=== PATIENT | female | born 1945 | race Caucasian/White ===

== ENCOUNTER 2019-09-11 13:41 | Outpatient (CLI) | payer OTHER, SELFPAY ==
[2019-09-11] VITALS (9 sets, daily range): BP systolic 107–155; BP diastolic 54–90; PULSE 84–97; RESP 16–20; TEMP 36.2; O2SAT 97–100
--- NOTE | 2019-09-11 13:45 | DI.RAD.S_ITS ---
PROCEDURE: PAIN L INTERLAMINAR/CAUDAL INJ INDICATIONS: SPINAL STENOSIS FINDINGS: Fluoroscopic spot filming was performed to verify placement of spinal needles at the L4-L5 level(s), as labeled on the films. Appropriate location(s) of the needle tip(s) was confirmed by injection of iodinated contrast. Dictated by: Rico Levi M.D. on 09/11/2019 at 15:42 Approved by: Rico Levi M.D. on 09/11/2019 at 15:42
[2019-09-11] MEDS: MIDAZOLAM 5 MG/5 ML VIAL IV (15:00)
[2019-09-11] MEDS: BUPIVACAINE 0.25% (PF) VIAL 2 ML INJ (15:04)
[2019-09-11] MEDS: IOPAMIDOL 15 ML VIAL 3 ML INJ (15:06)
[2019-09-11] MEDS: BETAMETHASONE 30 MG/5 ML MDV 6 MG INJ (15:06)
[2019-09-11] MEDS: fentaNYL 100 MCG/2 ML INJ 50 MCG IV (15:07)
--- NOTE | 2019-09-11 15:20 | PC.NURSE ---
Post procedure note: time out at 1458. Patient medicated per providers orders. Tolerated procedure well. VSS throughout. Procedure end at 1509. Patient able to sit up at transfer to wheelchair with standby assist. Handoff report given to Arron Zaldivar RN at 1517. Patient transferred to recliner independently. Pain level 0/10. No complaints of unusual numbness or tingling to lower extremities.
--- NOTE | 2019-09-11 15:54 | P.PCN_ITS ---
Procedures Date/Time Date of procedure: 09/11/19 Time of procedure: 15:54 General Procedure description: PROVIDER: South Arias DO Operative Note PREOP DIAGNOSIS 1. HNP WITH RADICULAR FEATURES, 2. MULTILEVEL CENTRAL STENOSIS, POST OP DIAGNOSIS 1. HNP WITH RADICULAR FEATURES, 2. MULTILEVEL CENTRAL STENOSIS PROCEDURES 1. FLUORSCOPICALLY GUIDED CONTRAST CONTROLLED INTERLAMINAR EPIDURAL STEROID INJECTION -L4/5 PHYSICIAN: South Arias DO INDICATIONS: Cris is referred by Dr. Obando for treatment of Bilateral Foraminal Stenosis R>L LE symptoms. FINDINGS Multilevel Central Spinal Stenosis with Nerve Root Compression DESCRIPTION OF PROCEDURE Fluoroscopically guided, contrast-controlled L4/5 translaminar epidural steroid injection. Following review of allergy and review of potential side effects and complications, including, but not necessarily limited to, infection, allergic reaction, local tissue breakdown, temporary as well as permanent nerve injury, paralysis, stroke and possible , the patient indicated that the patient understood and agreed to proceed. An informed consent document was signed by the patient, witnessed by a nurse, and placed in the patient's chart. Additionally, other treatment options including modalities, medications, and physical therapy were reviewed with the patient. After review of previous anaesthesic history and IV conscious sedation the patient was deemed safe to proceed with todays procedure with IV conscious sedation as ASA class II designation. Safety time-out was performed to confirm patient ID, procedure to be performed and site of procedure. IV sedation was accomplished with a combination of 2mg of Versed and 50mcg of Fentanyl was administered by the RN after DO order, titrated to patient comfort during the course of the procedure while the patient remained responsive to all verbal commands In the prone position, following sterile prep and drape of the lumbar region, the L4/5 translaminar space was identified fluoroscopically. The skin was anest hetized via a 25-gauge, 1.5-inch needle with 1% lidocaine solution. At this point, a 22-gauge short bevel spinal needle was atraumatically introduced and advanced under fluoroscopic guidance into the region of the L4/5 translaminar space. Depth was confirmed on lateral view. Radiological data, including multiple fluoroscopic views of the lumbar spine, reveal a spinal needle at the L4/5 translaminar space. Lateral views then show placement of the needle in the epidural space. Subsequent views show contrast material flowing superiorly and inferiorly in the epidural space. No vascular or intrathecal uptake is observed. At this point, using loss of resistance technique with saline and air, the epidural space was entered. This was confirmed following negative aspiration with injection of approximately 1.5cc of Isovue 200, showing excellent epidural flow without vascular or intrathecal uptake. At this point, 1cc of 1% lidocaine solution combined with 3cc or 20mg of dexamethasone and 6mg betamethasone was injected without incident. The patient tolerated the procedure well without signs or symptoms of complications prior to transfer to the recovery area continued monitoring without incident. The patient was then transferred to the recovery area where they were observed for an appropriate period of time after the injection. The patient reported a VAS score of 6 prior to the procedure and a post- procedure VAS of 0. Total Fluoroscopy Time: 11.8 seconds, 8.99 mGy Total Conscious Sedation Time: 24min POST OP INSTRUCTIONS The patient was provided a Pain Log to continue to record their response to the target-specific procedure prior to follow-up visit with their referring physician. Additionally, specific post-injection care instructions and a contact number to our office were provided if concerns arise regarding possible complications associated with the procedure are suspected. South Arias DO Complications: none
== END 2019-09-11 15:41 ==
LOC: RAD 13:45
PROVIDERS: PCP Family Medicine; Visit Provider Physical Medicine & Rehabilitation
DX: M51.16 Intervertebral disc disorders with radiculopathy, lumbar region (principal); M48.062 Spinal stenosis, lumbar region with neurogenic claudication
CPT/HCPCS: 62323; 99152; J0702; J1100; J2250; J3010

== ENCOUNTER 2020-08-31 07:37 | Day surgery (SDC) | payer OTHER, SELFPAY ==
[2020-08-25 13:35] VITALS: BMI 19.8
[2020-08-31] VITALS (7 sets, daily range): BP systolic 103–179; BP diastolic 44–100; PULSE 76–124; RESP 14–20; TEMP 36–36.7; O2SAT 92–100
--- NOTE | 2020-08-31 | PATH_ITS ---
[facility] Accession Number: [id number] . 01 Material submitted: . PART A: lymph node - RIGHT AXILLA SENTINEL NODES PART B: breast - RIGHT BREAST MASTECTOMY . 01 Clinical history: . RIGHT BREAST CANCER SHORT STITCH SUPERIOR, LONG STITCH LATERAL . 02 Diagnosis: A. Right Axilla, Mcdonough Nodes, Excisions: Two lymph nodes negative for carcinoma. . B. Right Breast, Mastectomy: Invasive ductal carcinoma; see Cancer Case Summary. . CANCER CASE SUMMARY - BREAST . Procedure: Total mastectomy. Specimen Laterality: Right. Tumor Site: Upper outer quadrant. Tumor Size: 3.0 cm in greatest dimension. Histologic Type: Invasive carcinoma of no special type (ductal). Histologic Grade Glandular/Tubular Differentiation: Score 2. Nuclear Pleomorphism: Score 2. Mitotic Rates: Score 1. Overall Grade: Grade 1. Tumor Focality: Single focus of invasive carcinoma. Ductal Carcinoma In Situ: Present-Negative for extensive intraductal component. Size (Extent of DCIS): DCIS present in 2 of 19 blocks examined. Architectural Patterns: Cribriform, solid. Nuclear Grade: Grade 2 (intermediate). Necrosis: Not identified. Lobular Carcinoma In Situ: Not identified. Tumor Extension Skin: Skin is present and uninvolved. Nipple: DCIS does not involve the nipple epidermis. Skeletal Muscle: No skeletal muscle is present. Margins Invasive Carcinoma Margins: Uninvolved by invasive carcinoma. Distance From Closest Margin: Less than 3 mm. Specified Closest Margin: Posterior. DCIS Margins: Uninvolved by DCIS. Distance From Closest Margin: Less than 3 mm. Specified Closest Margins: Anterior-superior. Regional Lymph Nodes: Uninvolved by tumor cells. Total Number of Lymph Nodes Examined: 2. Number of Mcdonough Nodes Examined: 2. Treatment Effect in the Breast: No known presurgical therapy. Lymphovascular Invasion: Not identified. Dermal Lymphovascular Invasion: Not identified. Pathologic Stage Classification (pTNM, AJCC 8th Edition) Primary Tumor: pT2. Regional Lymph Node Modifier: (sn). Regional Lymph Nodes: pN0. Ancillary Studies: Breast biomarker testing performed on previous biopsy ([facility], [facility] [id number]; 08/03/2020) with the following findings (by report, slides not examined): Estrogen Receptor: Positive (95%, strong). Progesterone Receptor: Negative. HER-2 by Immunohistochemistry: Negative (1+). Microcalcifications: Present in invasive carcinoma and in non-neoplastic tissue. [facility] 09/07/2020 1730 Local . 02 Comment: As part of routine supervisor type disk quality control, Dr. Chua has reviewed blocks B11 and B12 of this case and agrees with the diagnosis of invasive ductal carcinoma, and no lymphovascular invasion is identified. . 02 Electronically signed: . Arun Monk MD, PhD, Pathologist NPI- [id number] . 01 Gross description: . A. Specimen A is received in formalin, labeled sentinel lymph nodes and consists of two lyon-pink lymph nodes measuring 1.2 x 0.7 x 0.6 cm each. The lymph nodes are bisected and entirely submitted in cassettes A1-A2. . Formalin fixation time: Approximately 24 hours. (EA:[id number]) . B. Received in formalin, labeled right breast. Specimen: Right simple mastectomy: Weight: 325 grams. Measurement: 12.5 cm anterior to posterior, 14.0 cm medial to lateral, and 11.0 cm superior to inferior. Skin Ellipse: Present, lyon-white, elliptical portion measuring 15.2 x 8.3 cm. Nipple/Areola: 1.5 x 1.2 x 0.2 cm slightly everted nipple with a 3.0 x 2.8 cm in diameter areolar complex. Axillary Tail: Not present. Margins: The specimen is oriented by the surgeon with a short suture designated superior and a long suture designated lateral. The specimen is inked as follows: anterior superior blue, anterior inferior green, and posterior black. Slices: Serial sections of the specimen are consecutively numbered 1-24, lateral to medial. Lesions: Description: 3.0 x 2.8 x 2.0 cm within slices 6-12 (circular silver metallic biopsy clip within slice 11). The mass is lyon, firm and slightly ill-defined with surrounding dense fibrous tissue. The mass is located within the upper outer quadrant. Distance To Margins: 0.2 cm from the posterior margin, 1.0 cm from the anterosuperior margin, 4.0 cm from the anteroinferior margin, and greater than 4 cm from the nipple and areolar complex. Other: The uninvolved breast parenchyma is composed of approximately 70% lyon-white fibrous tissue and 30% lyon-yellow adipose tissue. Kier Drier sections are submitted as follows: . B1 - used equipment sales representative perpendicular sections of slice 1, lateral margin. B2 - slice 5, lateral to mass. B3 - slice 6, mass in relation to posterior margin. B4 - slice 7, mass in relation to posterior margin. B5 - slice 8, mass in relation to posterior margin. B6 - slice 9, mass in relation to posterior margin. B7-B8 - slice 9, mass in relation to anterior, superior and deep margins (site of biopsy marker). B9 - slice 10, mass in relation to posterior margin. B10 - slice 10, closest anteroinferior margin. B11 - slice 11, slice in relation to posterior, anterosuperior margins. B12 - slice 12, mass in relation to posterior margin. B13 - slice 12, mass in relation to posterior margin. B14 - slice 13, mass in relation to posterior margin. B15 - slice 14, medial to mass to include posterior margin. B16 - slice 16, nipple and areolar complex. B17 - upper inner quadrant. B18 - lower inner quadrant. (:[id number]) B19 - lower mid quadrant. ([facility]:[id number]) /[facility] 09/07/2020 1625 Local . 02 Microscopic: . B. To exclude a component of micropapillary carcinoma, an MARISELA immunohistochemical stain is performed (on block B12), which highlights diffuse basolateral and apical membrane staining within the carcinoma cells of interest. The inside out apical staining seen in micropapillary carcinoma is not present in the region of interest. Additionally, to exclude the possibility of lymphovascular invasion, D2-40 stains are performed (on blocks B11 and B12) , and there is no evidence of lymphovascular invasion. Control stain show appropriate reactivity. . * This test was developed and its performance characteristics determined by [employer]. It has not been cleared or approved by the U.S. Food and Drug Administration. The FDA has determined that such clearance or approval is not necessary. This test is used for clinical purposes. It should not be regarded as investigational or for research. . 02 Pathologist provided ICD-10: C50.911 . 02 CPT . 668985, 222132, B72306, A94238 Performed at: 01 [facility] [address] [address], [place], [place] [id number] MD Oj Gavin MD Phone: [phone] Performed at: 02 [facility] [address] [place] [id number] MD Bre Chua MD Phone: [phone]
--- NOTE | 2020-08-31 07:41 | DI.NM.S_ITS ---
PROCEDURE: NM SENTINEL NODE W IMAGING RADIOPHARMACEUTICAL: 0.5-1.0 mCi Millipore filtered Tc-99m sulfur colloid. INDICATIONS: right breast cancer COMPARISON: [facility], MG, MG DIAGNOSTIC BILATERAL DIGITAL BREAST TOMOSYNTHESIS, 07/23/2020, 11:27. [facility], US, US BIOPSY BREAST 1ST LESION RIGHT, 08/03/2020, 13:56. [facility], US, US BREAST LIMITED RIGHT, 07/23/2020, 11:51. TECHNIQUE: The area around the nipple was prepped and draped in a sterile fashion. Tc-99m sulfur colloid was injected intra-dermally in the outer edge of the areola in the right breast. Images were obtained subsequently. A body contour outline was obtained. FINDINGS: There are too right lymph nodes in the ipsilateral axilla. IMPRESSION: 2 lymph nodes are visualized in the right axilla. Dictated by: Freddy Ramirez M.D. on 08/31/2020 at 9:55 Approved by: Freddy Ramirez M.D. on 08/31/2020 at 9:56
[2020-08-31] MEDS: LACTATED RINGERS 1,000 ML 42 ML IV ×2 (08:21→12:36)
--- NOTE | 2020-08-31 08:21 | SUR.PREOP ---
Pt to nuclear medicine.
--- NOTE | 2020-08-31 09:45 | SUR.PREOP ---
0915 - Returned from [place].
--- NOTE | 2020-08-31 10:04 | PM.PREOP ---
Pre-operative Note COVID-19 COVID-19 status: Negative Result date/Date tested (Pos, Neg/Pending): 08/28/20 Interval Note History & Physical reviewed/Exam performed by Physician: Yes Changes to H&P: Yes H&P completed within 30 days and has changed as indicated here:: Following her initial office visit, the patient decided she would rather have a mastectomy than a lumpectomy, as she would like to avoid the need for radiation. We had a detailed discussion of the risks and benefits of mastectomy with sentinel node biopsy including risk of bleeding, infection, damage to nearby structures, need for additional procedures, scaring, wound dehiscence, poor healing, seroma, need for seroma drainage, need for additional surgery to revise her mastectomy scar, need for additional surgery for margin or axillary dissection. We discussed the increased risk of post op complications such as wound infection or poor healing due to her active cigarette smoking. She verbalized awareness of this increased risk. She states she would like to proceed with mastectomy and sentinel node biopsy and has signed consent for the same.
[2020-08-31] MEDS: CEFAZOLIN 2 GM/100 ML FROZ.PIGGY IV (10:54)
--- NOTE | 2020-08-31 11:17 | SUR.OPER ---
Supine on padded OR bed, head on pillow, arms secured on padded arm boards at <90 degrees abduction, legs uncrossed, safety belt at thigh, tape over blanket over lower legs.
[2020-08-31] MEDS: BUPIVACAINE 0.25% W/ EPI (PF) 10 ML VIAL 30 ML INJ ×2 (11:22→12:23)
[2020-08-31] MEDS: BUPIVACAINE LIPOSOME 266 MG/20 ML VIAL INJ (12:24)
--- NOTE | 2020-08-31 13:15 | P.OP_ITS ---
Operative Date/Time/Diagnoses Date of procedure: 08/31/20 Time of procedure: 13:15 Pre-op diagnosis: Right breast infiltrating ductal carcinoma Post-op diagnosis: same Procedure & Clinicians Procedure: Right breast simple mastectomy with sentinel lymph node biopsy Same procedure as scheduled: Yes Indications: Right breast infiltrating ductal carcinoma Surgeon: Vivi Mota Click Yes if Unassisted: Yes Anesthesia Type: General Operative Notes Findings: Palpable mass in right breast upper outer quadrant; two hot lymph nodes in right axilla with gamma count of 20,450 and 1730 Specimen(s): other (right mastectomy specimen with short suture superior and long suture lateral; two hot sentinel nodes with count of 20,450 and 1730) Applied: drain(s) (10 Fr. Flat NOLAN drain) Estimated Blood Loss (mL): 10 Blood products transfused: none Procedure in detail: The patient was brought into the OR and placed supine on the OR table. Sequential compression devices were placed on both legs and turned on. General anesthesia was induced and the patient was intubated by the anesthesiologist using an LMA. Appropriate perioperative antibiotics were given. Surgical time out was performed. Local anesthetic was infiltrated into the skin, and a 25cm x 10cm transverse modified eliptical incision was made in the skin of the right breast including the nipple areolar complex. Flaps were created using cautery, dividing the breast tissue from the skin and subcutaneous tissue of the breast. The upper flap was first created. Dissection was carried all the way to the clavicle superiorly, reaching the pectoral muscle. Inferiorly, the dissection was carried to the inframammary fold. Medially the breast tissue was dissected to the midline of the chest. I then dissected the breast tissue off of the pectoral muscle, taking the pectoral fascia from medial to lateral. Once we reached the lateral border of the pectoral muscle, the tail of the breast was dissected free. The specimen was removed from the wound and marked with a short stitch superior and long stitch lateral. Attention was then turned to the axilla. Gamma probe was used to identify sentinel lymph nodes. Two hot sentinel nodes were removed with count of 20,450 and 1730. Final count after nodes were removed was 470. A 10 flat NOLAN drain was placed over the pectoral muscle, exiting the skin inferolaterally from the lateral border of the skin incision. Local anesthetic with 0.25% Marcaine with epi 1cc per kilo of the patient's body weight, for a total of 60mL. 20mL of exparel was infiltrated in small aliquots in the subcutaneous fat, skin, muscle, and fascia. The edges of the skin flaps were approximated in layers using 2-0 Vicryl, 3-0 Vicryl, and subcuticular 4-0 Monocryl, creating a flat closure. A three cornered suture was created to prevent a dog ear of the lateral end of the incision. The drain was sutured in place with 3-0 Nylon. Dermabond and Steri strips were placed across the incisional closure, and a telfa island dressing was placed over the steri st rips, and a 4x4 gauze was placed around the drain. All were secured in place with Tegaderm. A breast binder was secured in place with gauze and ABD's padding the right breast surgical site. The patient was then awakened from anesthesia and extubated. Needle sponge and instrument counts were correct x 2. The patient was transferred to the PACU in stable condition. Complications: none Post-operative Condition: stable Disposition: PACU
--- NOTE | 2020-08-31 14:47 | SUR.PHASEII ---
1440 Pt sitting up, moves freely in bed, states that she doesn't have pain, just a mild sensation, didn't give a number, declines pain med. NOLAN instruction and supplies given including safety pin, alcohol swab, and measuring containers, & instructions. Stable on feet, awake, oriented, resp unlabored. Stated that she was pleased that 'my blood pressure's back to normal.' Awaiting discharge order completion
--- NOTE | 2020-08-31 15:08 | SUR.PHASEII ---
9117 Extensive instructions reviewed with the patient, Dr. Mota here, declines that she has any questions for the doctor. Dressing CDI. Pt comfortable, stable, all questions answered.
== END 2020-08-31 15:04 | disposition home or self-care (01) ==
PROVIDERS: PCP Family Medicine; Referring Provider Family Medicine; Visit Provider Surgery
PROC: 0HTT0ZZ Resection of Right Breast, Open Approach (ICD-10-PCS; CPT 19303; principal; 2020-08-31 10:15)
DX: C50.911 Malignant neoplasm of unspecified site of right female breast (principal); Z17.0 Estrogen receptor positive status [ER+]; F17.210 Nicotine dependence, cigarettes, uncomplicated
CPT/HCPCS: 19303; 38500; 78195; A9541; C9290; J0690; J1100; J2405; J2704; J3010